=== PATIENT | female | born 1995 | race Two or more races ===

== ENCOUNTER 2017-02-13 01:34 | Emergency (ER) | payer MEDICAID ==
[~2017-02-13] VITALS: Ht 170.2 cm; Wt 109.0 kg
[~2017-02-13 01:34] MED LIST: ONDA4TAB12 PO
[2017-02-13] MEDS ORDERED: benzonatate 100mg capsule PO ONE (01:50)
[2017-02-13] MEDS ORDERED: BENZ-16 PO (01:52)
[2017-02-13 02:05] VITALS: BP 153/88
== END 2017-02-13 02:04 | disposition home or self-care (01) ==
LOC: ER 01:35
DX: J22 Unspecified acute lower respiratory infection (principal); R07.89 Other chest pain
CPT/HCPCS: 99282; 99283

== ENCOUNTER → 2017-08-04 | Emergency (ER) | payer MEDICAID ==
[~2017-08-04] VITALS: Ht 213.4 cm; Wt 121.0 kg
[~2017-08-04] MED LIST changes: +HYDR25SU48 RC; +ONDA8TAB9 PO; +ondansetron 4mg rapidly disintigrating tab PO STA
[2017-08-04 10:51] LABS: CLARITY,URINE CLEAR (Clear); COLOR,URINE YELLOW (Yellow); GLUCOSE, URINE NEGATIVE (Neg); KETONES,URINE >=80 mg/dl (Neg); LEUKOCYTE ESTERASE ,URINE NEGATIVE (Neg); NITRITES, URINE NEGATIVE (Neg); OCCULT BLOOD,URINE LARGE (Neg); PROTEIN,URINE NEGATIVE (Neg); UROBILINOGEN,URINE 0.2 E.U/dL (0.2-1.0)
[2017-08-04 10:56] LABS: UA COLLECTION TYPE CLN CATCH MIDSTREAM
[2017-08-04 10:58] LABS: BACTERIA,URINE NONE SEEN /HPF (Neg); MUCUS STRANDS FEW /LPF (Neg); SQUAMOUS EPITHELIAL CELL,UR FEW /LPF (FEW); WBC,URINE NONE SEEN /HPF (0-4)
[2017-08-04 11:15] LABS: BASOPHILS % (AUTO) 0.3 % (0-1); EOSINOPHILS % (AUTO) 0.1 % (0-6); HEMATOCRIT 40.6 % (35.0-45.0); HEMOGLOBIN 13.5 g/dl (12.0-16.0); LYMPHOCYTES # (AUTO) 0.8 X10'3 (1.1-4.8); MEAN CORPUSCULAR HEMOGLOBIN 27.5 PG (27.0-31.0); MEAN CORPUSCULAR HGB CONC 33.2 % (33.0-36.5); MEAN CORPUSCULAR VOLUME 82.7 FL (78-98); MEAN PLATELET VOLUME 8.5 FL (7.4-10.4); MONOCYTES # (AUTO) 0.4 X10'3 (0-0.9); MONOCYTES % (AUTO) 3.5 % (2-12); NEUTROPHILS # (AUTO) 11.6 X10'3 (1.8-7.7); NEUTROPHILS % (AUTO) 90.1 % (42-75); PLATELET COUNT 209 X10'3 (140-440); RED CELL DISTRIBUTION WIDTH 13.8 % (11.5-14.5); WHITE BLOOD COUNT 12.9 X10'3 (4.5-11.0)
[2017-08-04 11:52] VITALS: BP 121/74
[2017-08-04 12:25] LABS: INR 1.1 INR; PROTHROMBIN TIME 11.4 SECONDS (9.0-12.0)
[2017-08-04 12:34] LABS: ALANINE AMINOTRANSFERASE 25 U/L (12-78); ALBUMIN 3.6 G/DL (3.4-5.0); ALBUMIN/GLOBULIN RATIO 0.9 (1.1-1.5); ALKALINE PHOSPHATASE 78 IU/L (46-116); ANION GAP 11 (8-16); ASPARTATE AMINO TRANSFERASE 13 U/L (10-37); BILIRUBIN,TOTAL 0.5 MG/DL (0.1-1.0); BLOOD UREA NITROGEN 9 MG/DL (7-18); BUN/CREATININE RATIO 10.5 (6.6-38.0); CALCIUM 8.5 MG/DL (8.5-10.1); CHLORIDE 102 MMOL/L (99-107); CREATININE 0.86 MG/DL (0.40-0.90); GLUCOSE 89 MG/DL (70-104); POTASSIUM 3.5 MMOL/L (3.5-5.1); SODIUM 138 MMOL/L (135-145); TOTAL CARBON DIOXIDE 25.5 MMOL/L (24-32); TOTAL PROTEIN 7.4 G/DL (6.4-8.2); eGFR 83 ML/MIN
== END | disposition home or self-care (01) ==
LOC: ER 09:59
DX: R10.9 Unspecified abdominal pain (principal)
CPT/HCPCS: 36415; 80053; 81001; 85025; 85610; 99284

== ENCOUNTER 2018-01-02 10:12 | Emergency (ER) | payer MEDICAID ==
[~2018-01-02] VITALS: Ht 170.2 cm; Wt 120.0 kg
[~2018-01-02 10:12] MED LIST changes: -HYDR25SU48 RC; -ondansetron 4mg rapidly disintigrating tab PO STA
[2018-01-02 10:22] VITALS: BP 135/86
[2018-01-02] MEDS ORDERED: IBUP-1984 PO (11:20)
[2018-01-02] MEDS ORDERED: CYCL-1 PO (11:20)
== END 2018-01-02 11:30 | disposition home or self-care (01) ==
LOC: ER 10:12
DX: M54.5 Low back pain (principal); G89.29 Other chronic pain; V49.49XA Driver injured in collision with other motor vehicles in traffic accident, initial encounter; Y93.89 Activity, other specified; Y92.488 Other paved roadways as the place of occurrence of the external cause; Y99.8 Other external cause status
CPT/HCPCS: 72100; 99284

== ENCOUNTER 2018-07-24 06:07 | Emergency (ER) | payer MEDICAID, OTHER ==
[~2018-07-24] VITALS: Ht 170.2 cm; Wt 118.2 kg
[~2018-07-24 06:07] MED LIST changes: +CYCL-1 PO
[2018-07-24 06:10] VITALS: BP 165/99
== END 2018-07-24 06:38 | disposition home or self-care (01) ==
LOC: ER 06:08
DX: L55.9 Sunburn, unspecified (principal); G89.29 Other chronic pain; Z88.8 Allergy status to other drugs, medicaments and biological substances; Z79.899 Other long term (current) drug therapy
CPT/HCPCS: 99281

== ENCOUNTER 2018-12-05 23:20 | Emergency (ER) | payer MEDICAID, OTHER ==
[~2018-12-05] VITALS: Ht 170.2 cm; Wt 120.5 kg
--- NOTE | 2018-12-05 23:35 | NUR ---
DR LANDA AT BEDSIDE TO DELMA PT
[2018-12-05 23:49] LABS: CLARITY,URINE CLEAR (Clear); COLOR,URINE YELLOW (Yellow); GLUCOSE, URINE NEGATIVE (Neg); KETONES,URINE NEGATIVE (Neg); LEUKOCYTE ESTERASE ,URINE NEGATIVE (Neg); NITRITES, URINE NEGATIVE (Neg); OCCULT BLOOD,URINE NEGATIVE (Neg); PH,URINE 6.5 (4.8-8.0); PROTEIN,URINE NEGATIVE (Neg); UROBILINOGEN,URINE 0.2 E.U/dL (0.2-1.0)
[2018-12-05 23:51] LABS: URINE HCG NEGATIVE (NEG)
[2018-12-05 23:56] LABS: UA COLLECTION TYPE CLN CATCH MIDSTREAM
[2018-12-06] MEDS ORDERED: HYDR-3965 PO (00:10)
[2018-12-06] MEDS ORDERED: HYDROcodone/acetaminophen 5mg/325mg tablet PO ONE (00:10)
[2018-12-06 00:19] VITALS: BP 139/88
== END 2018-12-06 00:22 | disposition home or self-care (01) ==
LOC: ER 23:20
DX: R10.2 Pelvic and perineal pain (principal); R10.32 Left lower quadrant pain; G89.29 Other chronic pain; Z88.8 Allergy status to other drugs, medicaments and biological substances; Z79.899 Other long term (current) drug therapy
CPT/HCPCS: 81003; 81025; 99283

== ENCOUNTER 2019-09-23 22:47 | Emergency (ER) | payer BC ==
[~2019-09-23] VITALS: Ht 170.2 cm; Wt 120.3 kg
[2019-09-24] MEDS ORDERED: ondansetron 4mg rapidly disintigrating tab PO ONE (00:35)
[2019-09-24] MEDS ORDERED: ketorolac trometh. 30mg/ml inj. IM ONE (00:35)
[2019-09-24] MEDS ORDERED: cyclobenzaprine 10mg tablet PO ONE (01:25)
[2019-09-24] MEDS ORDERED: CYCL-1 PO (02:30)
[2019-09-24 02:47] VITALS: BP 141/89
== END 2019-09-24 02:48 | disposition home or self-care (01) ==
LOC: ER 22:47
DX: R51 Headache (principal); R11.0 Nausea; R42 Dizziness and giddiness; I10 Essential (primary) hypertension; G89.29 Other chronic pain; Z88.8 Allergy status to other drugs, medicaments and biological substances; Z79.899 Other long term (current) drug therapy
CPT/HCPCS: 36415; 85651; 96372; 99283; J1885